=== PATIENT | female | born 1950 | race Caucasian/White ===

== ENCOUNTER → 2023-11-08 13:22 | Outpatient (REF) | payer MEDICARE, SELFPAY | LOC: WDC 13:22 | PROVIDERS: ATTENDING PHYSICIAN Family Medicine Geriatric Medicine; FAMILY PHYSICIAN Family Medicine | DX: F17.210 Nicotine dependence, cigarettes, uncomplicated (principal); Z85.3 Personal history of malignant neoplasm of breast; C50.111 Malignant neoplasm of central portion of right female breast; Z17.0 Estrogen receptor positive status [ER+] | CPT/HCPCS: 71271; 77062; 77066 ==

== ENCOUNTER → 2024-11-11 13:36 | Outpatient (REF) | payer MEDICARE, SELFPAY | LOC: WDC 13:36 | PROVIDERS: ATTENDING PHYSICIAN Family Medicine Geriatric Medicine; FAMILY PHYSICIAN Family Medicine | DX: Z12.31 Encounter for screening mammogram for malignant neoplasm of breast (principal); C50.111 Malignant neoplasm of central portion of right female breast; Z85.3 Personal history of malignant neoplasm of breast | CPT/HCPCS: 77063; 77067 ==

== ENCOUNTER → 2024-12-25 10:26 | Outpatient (REF) | payer MEDICARE, SELFPAY | LOC: HWRAD 10:26 | PROVIDERS: ATTENDING PHYSICIAN Family Medicine; OTHER PHYSICIAN Family Medicine Geriatric Medicine; REFERRING PHYSICIAN Internal Medicine Hematology & Oncology | DX: F17.210 Nicotine dependence, cigarettes, uncomplicated (principal) | CPT/HCPCS: 71271 ==

== ENCOUNTER → 2025-03-26 09:48 | Outpatient (REF) | payer MEDICARE, SELFPAY | LOC: WDC 09:48 | PROVIDERS: ATTENDING PHYSICIAN Family Medicine Geriatric Medicine; FAMILY PHYSICIAN Family Medicine | DX: R92.333 Mammographic heterogeneous density, bilateral breasts (principal); Z85.3 Personal history of malignant neoplasm of breast; Z12.39 Encounter for other screening for malignant neoplasm of breast | CPT/HCPCS: 76641 ==

== ENCOUNTER → 2025-06-26 09:36 | Outpatient (REF) | payer MEDICARE, SELFPAY | LOC: RAD 09:36 | PROVIDERS: ATTENDING PHYSICIAN Family Medicine; OTHER PHYSICIAN Family Medicine Geriatric Medicine; OTHER PHYSICIAN Internal Medicine Hematology & Oncology | DX: R91.8 Other nonspecific abnormal finding of lung field (principal); R91.1 Solitary pulmonary nodule | CPT/HCPCS: 71250 ==